=== PATIENT | male | born 1985 | race Caucasian/White ===

== ENCOUNTER 2016-10-01 09:22 | Emergency (ER) | payer BC, OTHER ==
[2016-10-01 09:42] VITALS: O2SAT 95
--- NOTE | 2016-10-01 09:50 | C.PDOC ---
History Of Present Illness 31 yr old male presents to the ER with complaints of cough, congestion, fever and body aches for the past 2 days. Patient denies recent travels, sick contact , chest pain, SOB, nausea, vomiting, abdominal pain, diarrhea, headache, weakness or numbness. Time Seen by Provider: 10/01/16 09:43 Chief Complaint (Nursing): Cough, Cold, Congestion History Per: Patient History/Exam Limitations: no limitations Onset/Duration Of Symptoms: Days (2) Past Medical History Reviewed: Historical Data, Nursing Documentation, Vital Signs Vital Signs: Last Vital Signs Temp 99.9 F H 10/01/16 11:00 Pulse 97 H 10/01/16 11:00 Resp 18 10/01/16 11:00 BP 127/81 10/01/16 11:00 Pulse Ox 95 10/02/16 13:20 Family History: States: Other (nc) Review Of Systems Except As Marked, All Systems Reviewed And Found Negative. Constitutional: Positive for: Fever (Subjective), Other ((+) Body aches) ENT: Positive for: Nose Congestion Cardiovascular: Negative for: Chest Pain Respiratory: Positive for: Cough. Negative for: Shortness of Breath Gastrointestinal: Negative for: Nausea, Vomiting, Abdominal Pain, Diarrhea Neurological: Negative for: Weakness, Numbness, Headache Physical Exam - Physical Exam Appears: Well, Non-toxic, No Acute Distress Skin: Warm, Dry Head: Atraumatic, Normacephalic Eye(s): bilateral: Normal Inspection, PERRL, EOMI Ear(s): Bilateral: Normal Nose: Normal, No Discharge Oral Mucosa: Moist Throat: Normal, No Erythema, No Exudate Neck: Normal, Normal ROM, Supple Chest: Symmetrical, No Tenderness Cardiovascular: Rhythm Regular, No Murmur Respiratory: Normal Breath Sounds, No Rales, No Rhonchi, No Stridor, No Wheezing Gastrointestinal/Abdominal: Normal Exam, Soft, No Tenderness, No Guarding, No Rebound Extremity: Normal ROM, No Swelling Neurological/Psych: Oriented x3, Normal Speech, Normal Motor ED Course And Treatment O2 Sat by Pulse Oximetry: 95 Medical Decision Making Medical Decision Making: PLAN: * Tylenol PO Disposition - Disposition Referrals: [facility] [Outside] Disposition: HOME/ ROUTINE Disposition Time: 10:55 Condition: GOOD Additional Instructions: Please follow up with a primary doctor. Take tylenol and/or ibuprofen for fever and body aches. Return to the ER for any worsening symptoms or for any other concerns. Prescriptions: Acetaminophen [Tylenol 325mg tab] 650 mg PO Q4H PRN #10 tab PRN Reason: Fever >100.4 F Instructions: Influenza (ED) Forms: General Discharge Instructions - Clinical Impression Clinical Impression: Influenza-like illness - Scribe Statement The provider has reviewed the documentation as recorded by the River Francis Provider Attestation: All medical record entries made by the River were at my direction and personally dictated by me. I have reviewed the chart and agree that the record accurately reflects my personal performance of the history, physical exam, medical decision making, and the department course for this patient. I have also personally directed, reviewed, and agree with the discharge instructions and disposition.
[2016-10-01 11:15] VITALS: BP 127/81; PULSE 97; RESP 18; TEMP 99.9
== END 2016-10-01 11:00 | disposition home or self-care (01) ==
LOC: C.ER 09:22
DX: J11.1 Influenza due to unidentified influenza virus with other respiratory manifestations (principal)

== ENCOUNTER 2016-10-03 20:01 | Emergency (ER) | payer OTHER ==
[2016-10-03 20:28] VITALS: BP 121/79; PULSE 80; RESP 20; TEMP 98.6; O2SAT 99
[2016-10-03] MEDS ORDERED: Phenylephrine 1% Nasal Spray (15 ml) NAS STA (20:45)
[2016-10-03] MEDS ORDERED: Phenylephrine 1% Nasal Spray (15 ml) ONE (21:01)
--- NOTE | 2016-10-03 21:05 | C.PDOC ---
History Of Present Illness 31 year old male presents to the ED with complaints of one episode of epistaxis today. Patient states the episode lasted 2-5 minutes and resolved after he applied pressure to his nose. He notes he has had a cold for 4-5 days and denies injury, headache, dizziness, or any other complaints at this time. Time Seen by Provider: 10/03/16 20:34 Chief Complaint (Nursing): ENT Problem History Per: Patient History/Exam Limitations: None Onset/Duration Of Symptoms: Mins Current Symptoms Are (Timing): Better Past Medical History Reviewed: Historical Data, Nursing Documentation, Vital Signs Vital Signs: Last Vital Signs Temp 98.6 F 10/03/16 20:22 Pulse 80 10/03/16 20:22 Resp 20 10/03/16 20:22 BP 121/79 10/03/16 20:22 Pulse Ox 99 10/03/16 21:07 - Medical History PMH: No Chronic Diseases Family History: States: Unknown Family Hx - Social History Hx Alcohol Use: No Hx Substance Use: No - Immunization History Hx Tetanus Toxoid Vaccination: No Hx Influenza Vaccination: No Hx Pneumococcal Vaccination: No Review Of Systems Except As Marked, All Systems Reviewed And Found Negative. Constitutional: Negative for: Fever, Chills ENT: Positive for: Nose Discharge (+Epistaxis) Physical Exam - Physical Exam Appears: Non-toxic, No Acute Distress Skin: Normal Color, Warm, Dry Head: Atraumatic, Normacephalic Eye(s): bilateral: Normal Inspection Ear(s): Bilateral: Normal Nose: No Epistaxis (No active bleeding), Other (+Dried blood to the right nare) Oral Mucosa: Moist Throat: Normal, No Erythema, No Exudate, Other (Clear posterior pharynx) Neck: Supple Chest: Symmetrical Cardiovascular: Rhythm Regular Respiratory: Normal Breath Sounds, No Accessory Muscle Use, No Rales, No Rhonchi , No Wheezing Extremity: Normal ROM Neurological/Psych: Oriented x3, Normal Speech, Normal Cognition ED Course And Treatment O2 Sat by Pulse Oximetry: 99 (Room air) Pulse Ox Interpretation: Normal Medical Decision Making Medical Decision Making: There is no active bleeding in the ED and patient will follow up with the ENT within 1-2 days. Disposition - Disposition Referrals: Mat Davis MD [Staff Provider] - Disposition: HOME/ ROUTINE Disposition Time: 21:05 Condition: GOOD Additional Instructions: Follow up with the ENT within 1-2 days without fail. Return if worsened. Instructions: Nosebleed (ED) - Clinical Impression Clinical Impression: Epistaxis - PA / MANAGER NC / Resident Statement MD/DO has reviewed & agrees with the documentation as recorded. - Scribe Statement The provider has reviewed the documentation as recorded by the Scribe John Siegel. All medical record entries made by the Scribe were at my direction and personally dictated by me. I have reviewed the chart and agree that the record accurately reflects my personal performance of the history, physical exam, medical decision making, and the department course for this patient. I have also personally directed, reviewed, and agree with the discharge instructions and disposition. Procedures - Epistaxis Control Consent Obtained: verbal consent Nostril: Right Nose Prepped With: phenylephrine Direct Inspection: unable to visualize Clots Removed by: blowing nose, manually Cautery Used: none Device Inserted: vaseline gauze Patient Tolerated Procedure: well Complications: other (None)
== END 2016-10-03 21:09 | disposition home or self-care (01) ==
LOC: C.ER 20:01
DX: R04.0 Epistaxis (principal)